=== PATIENT | female | born 1980 | race Caucasian/White ===

== ENCOUNTER 2018-02-18 16:50 | Emergency (ER) | payer BC ==
--- NOTE | 2018-02-18 17:36 | ER Document Report ---
ED Medical Screen (RME) - General Chief Complaint: Vaginal Bleeding Stated Complaint: VAGINAL BLEEDING Time Seen by Provider: 02/18/18 17:24 Notes: 37-year-old female patient whose last menstrual period was 01/28/2018, was at a routine [facility] appointment, complaining of pelvic pain. Ultrasound showed a clot in her uterus, so she was started on Lovenox. She is now having heavy bleeding for the past 3 hours and was instructed to come to the emergency room for further evaluation. I have greeted and performed a rapid initial assessment of this patient. A comprehensive ED assessment and evaluation of the patient, analysis of test results and completion of the medical decision making process will be conducted by additional ED providers. TRAVEL OUTSIDE OF THE [place] IN LAST 30 DAYS: No - Related Data Allergies/Adverse Reactions: codeine [Codeine] Allergy (Intermediate, Verified 09/28/15 17:03) Hives Past Medical History - Social History Chew tobacco use (# tins/day): No Frequency of alcohol use: None Drug Abuse: None Renal/ Medical History: Denies: Hx Peritoneal Dialysis - Immunizations Hx Diphtheria, Pertussis, Tetanus Vaccination: Yes Physical Exam - Vital signs Vitals: Temp Pulse Resp BP Pulse Ox 98.0 F 65 16 113/64 99 02/18/18 16:59 02/18/18 16:59 02/18/18 16:59 02/18/18 16:59 02/18/18 16:59 Course - Vital Signs Vital signs: Temp Pulse Resp BP Pulse Ox 98.0 F 65 16 113/64 99 02/18/18 16:59 02/18/18 16:59 02/18/18 16:59 02/18/18 16:59 02/18/18 16:59 Doctor's Discharge - Discharge Referrals: ANGIE JONES MD [Primary Care Provider] - Follow up as needed
[2018-02-18 18:11] LABS: ABSOLUTE MONOCYTES (AUTO) 0.4 10^3/uL (0.1-1.4); ABSOLUTE NEUT (AUTO) 3.8 10^3/uL (1.7-8.2); HEMOGLOBIN 14.2 g/dL (12.0-15.5); RED CELL DISTRIBUTION WIDTH 13.2 % (11.5-14.0); TOTAL CELLS COUNTED % (AUTO) 100 %
[2018-02-18 18:21] LABS: INTERNATIONAL RATION (INR) 0.92; PROTHROMBIN TIME 12.9 SEC (11.4-15.4)
[2018-02-18 18:23] LABS: BASOPHILS % (AUTO) 0.4 % (0-2); EOSINOPHILS % (AUTO) 0.8 % (0-6); HEMATOCRIT 41.6 % (36.0-47.0); LYMPHOCYTES % (AUTO) 32.1 % (13-45); MEAN CORPUSCULAR HEMOGLOBIN 30.5 pg (27.0-33.4); MEAN CORPUSCULAR HGB CONC 34.1 g/dL (32.0-36.0); MEAN CORPUSCULAR VOLUME 89 fl (80-97); MONOCYTES % (AUTO) 6.9 % (3-13); PLATELET COUNT 233 10^3/uL (150-450); RED BLOOD COUNT 4.66 10^6/uL (3.72-5.28); SEGMENTED NEUTROPHILS % (AUTO) 59.8 % (42-78); WHITE BLOOD COUNT 6.3 10^3/uL (4.0-10.5)
[2018-02-18 18:34] LABS: ALANINE AMINOTRANSFERASE 32 U/L (9-52); ALBUMIN 4.2 g/dL (3.5-5.0); ALKALINE PHOSPHATASE 52 U/L (38-126); ANION GAP 8 (5-19); ASPARTATE AMINO TRANSFERASE 26 U/L (14-36); BILIRUBIN,DIRECT 0.4 mg/dL (0.0-0.4); BILIRUBIN,TOTAL 0.6 mg/dL (0.2-1.3); BLOOD UREA NITROGEN 10 mg/dL (7-20); CALCIUM 9.6 mg/dL (8.4-10.2); CARBON DIOXIDE 26 mmol/L (22-30); CHLORIDE 107 mmol/L (98-107); GLUCOSE 88 mg/dL (75-110); POTASSIUM 4.4 mmol/L (3.6-5.0); SODIUM 140.6 mmol/L (137-145); TOTAL PROTEIN 7.2 g/dL (6.3-8.2)
--- NOTE | 2018-02-18 19:05 | RADIOLOGY REPORT (SQ) ---
EXAM DESCRIPTION: U/S NON-OB PELVIS TV W/O DOP COMPLETED DATE/TIME: 02/18/2018 6:51 pm REASON FOR STUDY: Recent uterine clot,Rx'd Lovenox,now heavy bleedin COMPARISON: None. TECHNIQUE: Dynamic and static grayscale images acquired of the pelvis via transvaginal approach and recorded on PACS. Additional selected color Doppler and spectral images recorded. LIMITATIONS: None. FINDINGS: UTERUS: Contour normal. No mass. ENDOMETRIAL STRIPE: No focal or generalized thickening. No masses. CERVIX: No nabothian cysts. RIGHT OVARY AND DOPPLER: Normal size. No worrisome masses. Normal arterial vascular flow without evid ence for torsion. LEFT OVARY AND DOPPLER: Normal size. No worrisome masses. Normal arterial vascular flow without evide nce for torsion. FREE FLUID: None noted. OTHER: No other significant finding. MEASUREMENTS: UTERUS: 8.7 x 4.9 x 4.0 cm ENDOMETRIAL STRIPE: 8.0 kaylin RIGHT OVARY: 2.7 x 2.8 x 1.3 cm LEFT OVARY: 2.5 x 1.8 x 1.4 cm IMPRESSION: NORMAL TRANSVAGINAL PELVIC ULTRASOUND. TECHNICAL DOCUMENTATION: JOB ID: [id number] [employer]- All Rights Reserved Rev-10/02 Reading location - IP/workstation name: [email or web address]
--- NOTE | 2018-02-18 20:45 | ER Document Report ---
ED GI/ - General Chief Complaint: Vaginal Bleeding Stated Complaint: VAGINAL BLEEDING Time Seen by Provider: 02/18/18 17:24 Information source: Patient, Relative Notes: Patient is a 37-year-old female comes emergency room complaining of abnormal vaginal bleeding. Patient states that she is currently taking Lovenox injections because she has a blood clot in her uterus. She is also states she is got approximately 2 more weeks ago by taking the Lovenox. She states that this afternoon approximately 2 hours prior to arrival she started having some bleeding it became more heavy and she contacted her OPEN WINDER and was told to come the emergency room to get checked out. Patient's actual. Should not be starting until the . She also states that she is usually regular on her periods and therefore this is a little unusual. Her OPEN WINDER checked her today and stated that she had still a small clot in the uterus and so would need to be continued on with the Lovenox. She has some slight cramping in the abdomen but no severe pain. TRAVEL OUTSIDE OF THE [place] IN LAST 30 DAYS: No - HPI Patient complains to provider of: Vaginal bleeding Onset: This evening Timing/Duration: Sudden, Persistent, Worse Quality of pain: Cramping Severity at maximum: Moderate Severity in ED: Moderate Pain Level: 3 Location: Vaginal Vaginal bleeding (Compared to normal period): Heavier, Bright red, Passing clots LMP: 28 January Sexual history: Unprotected intercourse - Related Data Allergies/Adverse Reactions: codeine [Codeine] Allergy (Intermediate, Verified 09/28/15 17:03) Hives Past Medical History - Social History Smoking Status: Never Smoker Chew tobacco use (# tins/day): No Frequency of alcohol use: None Drug Abuse: None Family History: Reviewed & Not Pertinent Patient has suicidal ideation: No Patient has homicidal ideation: No Renal/ Medical History: Denies: Hx Peritoneal Dialysis - Immunizations Hx Diphtheria, Pertussis, Tetanus Vaccination: Yes Review of Systems - Review of Systems Constitutional: No symptoms reported EENT: No symptoms reported Cardiovascular: No symptoms reported Respiratory: No symptoms reported Gastrointestinal: No symptoms reported Genitourinary: No symptoms reported Female Genitourinary: Vaginal bleeding Musculoskeletal: No symptoms reported Skin: No symptoms reported Hematologic/Lymphatic: No symptoms reported Neurological/Psychological: No symptoms reported -: Yes All other systems reviewed and negative Physical Exam - Vital signs Vitals: Temp Pulse Resp BP Pulse Ox 98.0 F 65 16 113/64 99 02/18/18 16:59 10 16:59 10 16:59 02/18/18 16:59 02/18/18 16:59 Interpretation: Normal - Notes Notes: Well-nourished well-developed female no apparent distress - General General appearance: Alert - HEENT Head: Normocephalic, Atraumatic Eyes: Normal - Respiratory Respiratory status: No respiratory distress Chest status: Nontender Breath sounds: Normal. No: Rales, Rhonchi, Stridor, Wheezing Chest palpation: Normal - Cardiovascular Rhythm: Regular Heart sounds: Normal auscultation Murmur: No - Abdominal Inspection: Normal Distension: No distension Bowel sounds: Normal Tenderness: Nontender Organomegaly: No organomegaly - Genitourinary External exam: Normal, Other - External examination of the genitalia shows structure otherwise everything looks normal. There is a lot of dried bright red blood around the vaginal opening. Speculum exam: Normal, Cervix closed, Other - Further investigation of the entire vaginal tract shows no sign of any type of lesions or lacerations. The osseous close the cervix looks normal however she is oozing bright red blood from the hospital mixed with a thin mucoid type of a discharge. No CMT is noted Vaginal bleeding: Moderate Bimanuel exam: Normal Course - Re-evaluation Re-evalutation: 02/18/18 20:49 I performed a pelvic exam on patient has documented previously. I found no real abnormalities in her bleeding appears to be slowing down the looks of the amount is coming out the office at this time. I believe this to be a normal type. Presentation there is the clear thick discharge that is also coming out with it bright red blood. There are a few small clots in the vaginal vault area. And the blood is bright red. There is no tenderness to palpation of the cervix. 02/18/18 20:50 At this point I do not believe patient is hemorrhaging given the slight amount that is coming out of the cervical loss at this time. Of informed patient that she needs to go home rest elevate the legs. She needs to see her OPEN WINDER in the morning. I told her that if for any reason she has a large evacuation of blood or she started feeling lightheaded and dizzy to return to ER. - Vital Signs Vital signs: Temp Pulse Resp BP Pulse Ox 98.0 F 65 16 113/64 99 02/18/18 16:59 02/18/18 16:59 02/18/18 16:59 02/18/18 16:59 02/18/18 16:59 - Laboratory Result Diagrams: 02/18/18 18:00 02/18/18 18:00 Discharge - Discharge Clinical Impression: Dysfunctional uterine bleeding Condition: Stable Disposition: HOME, SELF-CARE Instructions: Dysfunctional Uterine Bleeding ([facility]) Additional Instructions: As we discussed at this point you feel it slowing down and it looks to me like it is slowing down. By no means have you lost a ton of blood. At this point home rest elevate your legs. Would suggest that you contact your OPEN WINDER in the morning and have them follow-up with you tomorrow. I do not believe your hemorrhaging I believe that this is just possibly are normal. Just early. Highly suggest that you see them first thing. If for any reason you have a large evacuation of blood or you become lightheaded or dizzy we have any concerns between now and tomorrow morning return to ER for recheck. Referrals: ANGIE JONES MD [ACTIVE STAFF] - Follow up as needed
[2018-02-18 20:55] VITALS: BP 105/58
== END 2018-02-18 21:04 | disposition home or self-care (01) ==
LOC: ER 16:50
DX: N93.8 Other specified abnormal uterine and vaginal bleeding (principal); Z88.6 Allergy status to analgesic agent
CPT/HCPCS: 36415; 76830; 80053; 84703; 85025; 85610; 99284

== ENCOUNTER 2019-10-13 20:49 | Emergency (ER) | payer BC ==
--- NOTE | 2019-10-13 21:03 | ER Document Report ---
ED General - General Chief Complaint: S/S of Possible Stroke Stated Complaint: POSSIBLE STROKE Time Seen by Provider: 10/13/19 21:03 Primary Care Provider: WANDER CHILD MD [Primary Care Provider] - Follow up as needed Mode of Arrival: Ambulatory Information source: Patient TRAVEL OUTSIDE OF THE [place] IN LAST 30 DAYS: No - HPI Onset: Other - earlier in the day Onset/Duration: Gradual Quality of pain: Achy Severity: Severe Pain Level: 2 Associated symptoms: Other - shakiness, tremors, numbness, headache Exacerbated by: Denies Relieved by: Denies Similar symptoms previously: No Recently seen / treated by doctor: Yes - patient has been seen by an DENTAL LABORATORY TECHNICIAN APPRENTICE for an ovarian vein clot Notes: 39 year old female who was just diagnosed with an apparent ovarian vein clot and just started Lovenox here in the ER for shakiness/tremors/muscle jerking which she feels began after starting Lovenox. The patient denies recent head trauma fevers, chills, sweats, nausea, vomiting, urinary symptoms, cough but she has had a headache for about 3 weeks now. The patient denies recent head trauma. The patient has never had shaking spells like this before. - Related Data Allergies/Adverse Reactions: codeine [Codeine] Allergy (Intermediate, Verified 10/13/19 20:59) Hives Past Medical History - General Information source: Patient - Social History Smoking Status: Never Smoker Frequency of alcohol use: Occasional Drug Abuse: None Family History: Reviewed & Not Pertinent Renal/ Medical History: Denies: Hx Peritoneal Dialysis - Immunizations Hx Diphtheria, Pertussis, Tetanus Vaccination: Yes Review of Systems - Review of Systems Constitutional: No symptoms reported EENT: No symptoms reported Cardiovascular: No symptoms reported Respiratory: No symptoms reported Gastrointestinal: No symptoms reported Genitourinary: No symptoms reported Female Genitourinary: No symptoms reported Musculoskeletal: Other - diffuse muscle shaking/jerking Skin: No symptoms reported Hematologic/Lymphatic: No symptoms reported Neurological/Psychological: No symptoms reported -: Yes All other systems reviewed and negative Physical Exam - Vital signs Vitals: Resp Pulse Ox 18 98 10/13/19 20:56 10/13/19 20:56 - Notes Notes: GENERAL: Patient is shaking/jerking in bed and appears anxious. HEAD: Atraumatic, normocephalic. EYES: Pupils equal round and reactive to light, extraocular movements intact, sclera anicteric, conjunctiva are normal. ENT: External ears normal, nares patent, oropharynx clear without exudates. Moist mucous membranes. NECK: Normal range of motion, supple without lymphadenopathy or JVD. LUNGS: Breath sounds clear to auscultation bilaterally and equal. No wheezes rales or rhonchi. HEART: Regular rate and rhythm without murmurs, rubs or gallops. ABDOMEN: Soft, nontender, normoactive bowel sounds. No guarding, no rebound. No masses appreciated. EXTREMITIES: Normal range of motion, no pitting or edema. No clubbing or cyanosis. NEUROLOGICAL: Patient is shaking/jerking in bed and flailing around. Cranial nerves II through XII grossly intact. Normal speech PSYCH: Denies feeling depressed, SI or HI. Flat affect. SKIN: Warm, Dry, normal turgor, no rashes or lesions noted. Course - Re-evaluation Re-evalutation: 10/13/19 23:34 The patient had muscle jerking and generalized shaking on ER arrival but she was awake and alert. Patient was treated with IV Benadryl and Ativan and the shaking stopped. The patient says this has never happened before. The patient says she just started Lovenox and she is concerned this could be the cause. I told her this is not a common side effect of Lovenox. Patient apparently has an ovarian vein thrombosis and she tells me she has an outpatient CT head tomorrow with and without contrast since her doctor is apparently looking for more clots. The patient ask for something for her headache which she has been having for 3 weeks now. Patient given Toradol and Reglan IV. Patient told to have the CT of head tomorrow and to follow up with her PCP and DENTAL LABORATORY TECHNICIAN APPRENTICE Doctor. Patient was offered a head CT in the ER but she preferred to just wait for the CT tomorrow morning which I think is reasonable given I am not concerned about a stroke or head bleed at this time. - Vital Signs Vital signs: Temp Pulse Resp BP Pulse Ox 0 F L 88 19 115/78 91 L 10/13/19 21:02 10/13/19 21:02 10/13/19 22:01 10/13/19 22:01 10/13/19 22:01 - Laboratory Result Diagrams: 10/13/19 20:55 10/13/19 20:55 Laboratory results interpreted by me: 10/13/19 10/13/19 20:55 20:55 WBC 11.7 H Absolute Lymphs (auto) 4.8 H Salicylates < 1.0 L Acetaminophen < 10 L - EKG Interpretation by Me EKG shows normal: Sinus rhythm, [place], Intervals Rate: Tachycardia Additional EKG results interpreted by me: 10/13/19 23:37 motion artifact noted Discharge - Discharge Clinical Impression: Shaking Headache Qualifiers: Headache type: unspecified Headache chronicity pattern: chronic headache Intractability: not intractable Qualified Code(s): R51 - Headache Condition: Stable Disposition: HOME, SELF-CARE Instructions: Headache ([facility]) Additional Instructions: Follow up with your primary care doctor and your DENTAL LABORATORY TECHNICIAN APPRENTICE Doctor and tell them about your shaking/tremor event. You were given IV benadryl and ativan in the ER and your shaking stopped. Return to an ER if worse in anyway. Referrals: WANDER CHILD MD [Primary Care Provider] - Follow up as needed
[2019-10-13] MEDS ORDERED: DIPHENHYDRAMINE HCL 50 MG/ML VIAL IV ONE (21:16)
[2019-10-13] MEDS ORDERED: LORAZEPAM INJ 2 MG/1 ML VIAL IV ONE (21:16)
[2019-10-13 21:28] LABS: ABSOLUTE EOSINOPHILS # (AUTO) 0.1 10^3/uL (0.0-0.6); ABSOLUTE LYMPHOCYTES (AUTO) 4.8 10^3/uL (0.5-4.7); ABSOLUTE MONOCYTES (AUTO) 0.8 10^3/uL (0.1-1.4); BASOPHILS % (AUTO) 0.3 % (0-2); EOSINOPHILS % (AUTO) 1.1 % (0-6); HEMATOCRIT 43.9 % (36.0-47.0); MEAN CORPUSCULAR HEMOGLOBIN 30.5 pg (27.0-33.4); MEAN CORPUSCULAR HGB CONC 34.2 g/dL (32.0-36.0); MEAN CORPUSCULAR VOLUME 89 fl (80-97); MONOCYTES % (AUTO) 6.6 % (3-13); PLATELET COUNT 286 10^3/uL (150-450); RED BLOOD COUNT 4.92 10^6/uL (3.72-5.28); TOTAL CELLS COUNTED % (AUTO) 100 %; WHITE BLOOD COUNT 11.7 10^3/uL (4.0-10.5)
[2019-10-13 22:35] LABS: ALBUMIN 4.3 g/dL (3.5-5.0); ALKALINE PHOSPHATASE 64 U/L (38-126); ANION GAP 9 (5-19); ASPARTATE AMINO TRANSFERASE 20 U/L (14-36); BILIRUBIN,TOTAL 0.3 mg/dL (0.2-1.3); BLOOD UREA NITROGEN 12 mg/dL (7-20); CALCIUM 8.9 mg/dL (8.4-10.2); CARBON DIOXIDE 23 mmol/L (22-30); CHLORIDE 107 mmol/L (98-107); GLUCOSE 89 mg/dL (75-110); POTASSIUM 3.9 mmol/L (3.6-5.0)
[2019-10-13 22:36] LABS: ACETAMINOPHEN < 10 ug/mL (10-30); ALCOHOL < 10 mg/dL (NONE DETECTED); SALICYLATE < 1.0 mg/dL (2.0-20.0)
[2019-10-13] MEDS ORDERED: METOCLOPRAMIDE HCL INJ/PF 10 MG/2 ML SDV IV ONE (23:24)
[2019-10-13] MEDS ORDERED: KETOROLAC TROMETHAMINE INJ/PF 30 MG/1 ML SDV IV ONE (23:25)
[2019-10-14 00:08] VITALS: BP 103/67
--- NOTE | 2019-10-14 07:33 | EKG REPORT ---
SEVERITY:- ABNORMAL ECG - ATRIAL FLUTTER, A-RATE 249 (PROBABLY SINUS RHYTHM) ABERRANT COMPLEX, POSSIBLY SUPRAVENTRICULAR (PROBABLY BASELINE ARTEFACTS) DEFECTIVE EKG PROHIBITS INTERPRETATION. : Confirmed by: Bob Ambrocio MD 14-Oct-2019 07:32:27
== END 2019-10-14 00:22 | disposition home or self-care (01) ==
LOC: ER 20:49
DX: R25.1 Tremor, unspecified (principal); R51 Headache; R20.0 Anesthesia of skin; Z88.6 Allergy status to analgesic agent
CPT/HCPCS: 93005; 99285; 96374; 96375; 36415; 80307 ×3; 83735; 85025; 80053; 93010; J1200; J1885; J2765; J2060

== ENCOUNTER 2020-01-05 10:49 | Emergency (ER) | payer BC ==
--- NOTE | 2020-01-05 12:10 | ER Document Report ---
ED General - General Chief Complaint: Sore Throat Stated Complaint: SORE THROAT Time Seen by Provider: 01/05/20 11:47 Primary Care Provider: WANDER CHILD MD [Primary Care Provider] - Follow up as needed Mode of Arrival: Ambulatory Information source: Patient TRAVEL OUTSIDE OF THE [place] IN LAST 30 DAYS: No - HPI Notes: Patient presents complaining of sore throat generalized body aches weakness. She denies cough. No fevers. No vomiting or diarrhea. She states that she is currently on blood thinners for blood clots. She states that she has had several tests done and they are unsure why she gets blood clots. She denies medical problems otherwise. She states she was recently visiting her son last week and he had a similar type of infection and was prescribed azithromycin. She states that he had a Cobin test and it was negative. She has no other known ill contacts. Her body aches have been generalized and constant. They are worse with movement and better with rest. They radiate throughout her body. - Related Data Allergies/Adverse Reactions: codeine [Codeine] Allergy (Intermediate, Verified 01/05/20 11:21) Hives Home Medications: lovenox Past Medical History - General Information source: Patient - Social History Smoking Status: Never Smoker Chew tobacco use (# tins/day): No Frequency of alcohol use: None Drug Abuse: None Family History: Reviewed & Not Pertinent Patient has homicidal ideation: No Renal/ Medical History: Denies: Hx Peritoneal Dialysis - Immunizations Hx Diphtheria, Pertussis, Tetanus Vaccination: Yes Review of Systems - Review of Systems Constitutional: Chills, Malaise Cardiovascular: denies: Chest pain, Palpitations Respiratory: Cough. denies: Short of breath Physical Exam - Vital signs Interpretation: Normal - General General appearance: Appears well, Alert - HEENT Head: Normocephalic, Atraumatic Eyes: Normal Pupils: PERRL - Respiratory Respiratory status: No respiratory distress Chest status: Nontender Breath sounds: Normal Chest palpation: Normal - Cardiovascular Rhythm: Regular Heart sounds: Normal auscultation Murmur: No - Abdominal Inspection: Normal Distension: No distension Bowel sounds: Normal Tenderness: Nontender Organomegaly: No organomegaly - Back Back: Normal, Nontender - Extremities General upper extremity: Normal inspection, Nontender, Normal color, Normal ROM, Normal temperature General lower extremity: Normal inspection, Nontender, Normal color, Normal ROM, Normal temperature, Normal weight bearing. No: Alissa's sign - Neurological Neuro grossly intact: Yes Cognition: Normal Orientation: AAOx4 Kandace Coma Scale Eye Opening: Spontaneous [place] Coma Scale Verbal: Oriented [place] Coma Scale Motor: Obeys Commands Kandace Coma Scale Total: 15 Speech: Normal Motor strength normal: LUE, RUE, LLE, RLE Sensory: Normal - Psychological Associated symptoms: Normal affect, Normal mood - Skin Skin Temperature: Warm Skin Moisture: Dry Skin Color: Normal Course - Re-evaluation Re-evalutation: 01/05/20 12:06 I told patient that I feel her presentation is most consistent with a viral syndrome. Patient states that her son received a azithromycin and felt better and she wanted to know she could have azithromycin as well. I told her that I doubted this would help but is not unreasonable to try it. 01/05/20 12:10 The patient was evaluated during a global COVID-19 pandemic and that diagnosis was suspected/considered upon their initial presentation. Their evaluation, treatment and testing was consistent with current guidelines for patients who present with complaints or symptoms and may be related to COVID-19. Discharge - Discharge Clinical Impression: Viral syndrome Condition: Stable Disposition: HOME, SELF-CARE Instructions: Viral Syndrome ([facility]), COVID-19 Guidance for Persons Under Investigation Prescriptions: Tramadol HCl [Ultram] 50 mg PO Q6 PRN 3 Days #10 tablet PRN Reason: For Pain Azithromycin [Zithromax 250 mg Tablet] 250 mg PO ASDIR PRN #6 tablet PRN Reason: Forms: Return to School Referrals: WANDER CHILD MD [Primary Care Provider] - Follow up as needed
[2020-01-05 13:03] VITALS: BP 130/76
== END 2020-01-05 13:03 | disposition home or self-care (01) ==
LOC: ER 10:49
DX: B34.9 Viral infection, unspecified (principal); J02.9 Acute pharyngitis, unspecified; R68.83 Chills (without fever); R53.81 Other malaise; R05 Cough; I74.9 Embolism and thrombosis of unspecified artery; Z79.01 Long term (current) use of anticoagulants; Z88.6 Allergy status to analgesic agent; Z88.5 Allergy status to narcotic agent
CPT/HCPCS: 87070; 87880; 99283